=== PATIENT | male | born 1990 | race African-American/Black ===

== ENCOUNTER 2023-09-11 10:40 | Emergency (ER) | payer SELFPAY ==
[~2023-09-11] VITALS: Ht 180.3 cm; Wt 70.3 kg
[2023-09-11] MEDS ORDERED: AMOXICILLIN500 MG PO (12:27)
[2023-09-11 13:09] VITALS: O2SAT 100
== END 2023-09-11 13:12 | disposition home or self-care (01) ==
LOC: ER 11:52
DX: R50.9 Fever, unspecified (principal); J02.0 Streptococcal pharyngitis; I10 Essential (primary) hypertension; F17.210 Nicotine dependence, cigarettes, uncomplicated
CPT/HCPCS: 83518; 99285